=== PATIENT | female | born 1995 ===

== ENCOUNTER 2023-11-07 10:53 | Emergency (ER) | payer SELFPAY ==
[2023-11-07] MEDS ORDERED: Boostrix 0.5 ML (Tdap) VIAL (>/=7 yrs of age) ONE (11:20)
== END 2023-11-07 11:40 ==
LOC: ERS 10:53
DX: S80.211A Abrasion, right knee, initial encounter (principal); Z23 Encounter for immunization; X58.XXXA Exposure to other specified factors, initial encounter
CPT/HCPCS: 90471; 90715